=== PATIENT | male | born 1940 | race African-American/Black ===

== ENCOUNTER 2016-06-22 16:00 | Emergency (ER) | payer OTHER, MEDICAID ==
[~2016-06-22] VITALS: Ht 175.3 cm; Wt 93.4 kg
[2016-06-22 16:00] VITALS: BP_SYST 153
[~2016-06-22 16:00] MED LIST: ASPIRIN; CARVEDILOL PO; LISINOPRIL PO; LOVASTATIN PO
--- NOTE | 2016-06-22 16:00 | NUR ---
Patient brought in BLS, to bed 6 to gown
[2016-06-22 16:29] LABS: BASOPHILS % (AUTO) 0.6 % (0.0-2.0); EOSINOPHILS % (AUTO) 0.3 % (0.0-4.0); HEMOGLOBIN 12.9 g/dL (14.0-18.0); LYMPHOCYTES # (AUTO) 1.4 K/uL (1.0-5.5); LYMPHOCYTES % (AUTO) 25.4 % (20.5-51.5); MEAN CORPUSCULAR HEMOGLOBIN 31 pg (27-31); MEAN CORPUSCULAR HGB CONC 34 % (32-36); MEAN CORPUSCULAR VOLUME 90 fL (79.0-98.0); MONOCYTES # (AUTO) 0.7 K/uL (0.0-1.0); MONOCYTES % (AUTO) 13.1 % (1.7-9.3); NEUTROPHILS # (AUTO) 3.3 K/uL (1.8-7.7); NEUTROPHILS % (AUTO) 60.6 % (40.0-70.0); PLATELET COUNT (AUTO) 141 K/uL (130-430); RED CELL DISTRIBUTION WIDTH 13.8 % (9.0-15.0); WHITE BLOOD COUNT (AUTO) 5.4 K/uL (4.8-10.8)
--- NOTE | 2016-06-22 16:30 | NUR ---
PT PRESENTS WITH HISTORY OF FALLING 2 TIMES TODAY LAST TIME BEING JUST RPIOR TO ADMISSION. PTS DAUGHTER STATES THAT HE TOOK NIQUIL AT 0400 THIS AM FOR A HAD COLD AND HASNT FELT RIGHT SINCE THEN. PT PRESENTS WITH ABRASIONS TO FOREHEAD, NOSE, UPPER LIP AND INNER LIP. NO ACTIVE BLEEDING. WOUNDS CLEANED WITH NS. TONY. NO CONFUSION OR HEADACHE. WILL MONITOR.
[2016-06-22 16:33] LABS: ANION GAP 2 (5-15); CALCIUM 8.3 mg/dL (8.4-11.0); CHLORIDE 99 mmol/L (98-107); CREATININE 1.17 mg/dL (0.55-1.30); GLUCOSE 130 mg/dL (70-99); POTASSIUM 3.7 mmol/L (3.5-5.1); SODIUM SERUM 131 mmol/L (136-145); UREA NITROGEN, BLOOD 11 mg/dL (8-21)
[2016-06-22 16:38] LABS: INR 1.1 (0.80-1.20); PROTHROMBIN TIME 11.9 SECS (9.5-12.5)
--- NOTE | 2016-06-22 17:30 | NUR ---
WOUND CARE DONE TO FACIAL ABRASIONS WITH NS .
[2016-06-22] MEDS ORDERED: BACITRACIN 1 GM OINT TP ONE ×2 (18:15→18:19)
[2016-06-22 18:25] VITALS: BP_SYST 130
--- NOTE | 2016-06-22 18:25 | NUR ---
Patient given written and verbal discharge instructions and verbalizes understanding. ER MD discussed with patient the results and treatment provided. Given copies of tests performed in ER. Patient in stable condition. ID arm band removed. Rx of ZITHROMAX AND FLONASE given. Patient educated on pain management and to follow up with PMD. Pain Scale . Opportunity for questions provided and answered. EKG DONE PRIOR TO DISCHARGE AND BASCITRACIN OINTMENT APPLIED TO ABRASIONS ON FACE. PT DISCHARGED HOME WITH DAUGHTER VIA WC.
[2016-06-22] MEDS ORDERED: FLUT16SP16 NS (21:14)
[2016-06-22] MEDS ORDERED: AZIT250T PO (21:14)
[2016-06-22] MEDS ORDERED: FINA5TAB3 PO (21:14)
== END 2016-06-22 18:25 | disposition home or self-care (01) ==
LOC: SED 16:00
DX: S00.31XA Abrasion of nose, initial encounter (principal); S60.512A Abrasion of left hand, initial encounter; S60.511A Abrasion of right hand, initial encounter; J06.9 Acute upper respiratory infection, unspecified; E78.00 Pure hypercholesterolemia, unspecified; H54.0 Blindness, both eyes; I10 Essential (primary) hypertension; R51 Headache; Z95.9 Presence of cardiac and vascular implant and graft, unspecified; Z86.79 Personal history of other diseases of the circulatory system; W19.XXXA Unspecified fall, initial encounter; Y93.89 Activity, other specified; Y92.89 Other specified places as the place of occurrence of the external cause; Y99.8 Other external cause status
CPT/HCPCS: 36415; 70450-TC; 80048; 85025; 85610-TC; 85730-TC; 93005; 99285

== ENCOUNTER 2016-06-22 20:11 | Inpatient (IN) | payer OTHER, MEDICAID ==
[~2016-06-22] VITALS: Ht 180.3 cm; Wt 98.0 kg
[2016-06-22 20:11] VITALS: BP 153/78; PULSE 94; RESP 18; TEMP 97.2; O2SAT 98
--- NOTE | 2016-06-22 20:20 | NUR ---
Placed in room 03 . Placed on hospital monitor, blood pressure machine and pulse oximeter. To gown for exam. Side rails up. Report given to GARFIELD Huang.
--- NOTE | 2016-06-22 20:25 | NUR ---
Pt brought to ED by daughter for a second fall today , was seen by and discharged home, then fell and was brought back to ED by daughter, Pt joseph MEDEROS, stated he was able to get up by himself. Pt has difficulty ambulating and required assistance, gait unstable. Pt speech sluggish, slow to respond, denies dizziness, A&Ox4, denies SOB or chestpain, denies N/V/D. Abrasion at bridge of nose and forehead noted, treated with bacitracin topical. Daughter stated " my father is off, something is wrong with him, this is not normal".Will continue to monitor Addendum: 06/22/16 at 2315 by [email or web address] Daughter clarified that pt fell 1 time at home, did not come to ER. Fell second time and has abrasion on face, pt was brought to ED and was discharged. After pt went home, daughter stated she thought her dad is not acting normal, and brought him back to ED for evaluation
--- NOTE | 2016-06-22 20:30 | NUR ---
Doreen peterson in [place] - 06/22/16 at 2132 by [email or web address] Cooling measure with icepack and cool cloth used. Will continue to monitor
--- NOTE | 2016-06-22 20:30 | NUR ---
ER at bedside examining patient.
--- NOTE | 2016-06-22 20:50 | NUR ---
Medication reconciliation completed with information provided by daughter. Any prior medication reconciliation on file was reviewed and corrected.
[2016-06-22] MEDS ORDERED: FINA5TAB3 PO (21:14)
[2016-06-22] MEDS ORDERED: FLUT16SP16 NS (21:14)
[2016-06-22] MEDS ORDERED: AZIT250T PO (21:14)
--- NOTE | 2016-06-22 21:20 | NUR ---
Oral temp 102.2, aware, stated to continue monitor
--- NOTE | 2016-06-22 21:25 | NUR ---
Cold pack and cool cloth used , will continue to monitor
--- NOTE | 2016-06-22 22:10 | NUR ---
Oral temp 101.9, notified. stated to order CXR.
--- NOTE | 2016-06-22 22:18 | NUR ---
MD Carlin at bedside evaluating pt and discussing with family
--- NOTE | 2016-06-22 22:20 | NUR ---
clarified that pt is not sepsis, sepsis protocol will not be performed.
[2016-06-22] MEDS ORDERED: ONDANSETRON HCL 4 MG/2 ML VIAL IVP PRN (22:30)
--- NOTE | 2016-06-22 22:58 | NUR ---
ADMISSION: The patient, JULIANNE RODRIGUEZ, 76 y/o, M admitted by DELL LEWIS MD, was given written information regarding hospital policies, unit procedures and contact persons.
--- NOTE | 2016-06-22 22:58 | NUR ---
Patient will be admitted to care of . Admitted to med-surg unit. Will go to room 121C. Belongings list completed. Summary report printed. Report given to Vignesh MERRILL
[2016-06-22 23:00] VITALS: BP 136/71; PULSE 90
--- NOTE | 2016-06-22 23:10 | NUR ---
ADMITTED TO M/S ADMITTED PT TO FLOOR A/A/O, LEGALLY BLIND D/T GLAUCOMA. NO S/S OF PAIN AND NO SOB NOTED. V/S 136/71,99.1,90,19 96% RA. LACERATION NOTED TO NOSE BRIDGE AND UPPER LIP D/T FALL. IV NOTED TO R A/C G 20 NO INFILTRATE WITH GOOD BLOOD RETURN. WEAKNESS NOTED TO BLE. ORIENT PT TO ROOM AND USE OF CALL LIGHT. BED IN LOW POSITION WITH SIDE RAILS UPX2 FOR SAFETY. WILL CONT TO MONITOR.
[2016-06-22 23:13] VITALS: BP 136/71; PULSE 90; RESP 18; TEMP 99.1; O2SAT 95
--- NOTE | 2016-06-22 23:14 | NUR ---
Consultation Paged Reason for consultation: ALOC Was consult called: Yes Person who was notified: Kathy Consulting Physician: Vince Barajas Consulting Specialty: Neurology Senior Trial Attorney Ordered By: Dr Carlin
[2016-06-22 23:26] LABS: BARBITURATE, URINE NEGATIVE (NEG <=200); BENZODIAZEPINE, URINE NEGATIVE (NEG <=150); CANNABINOID, URINE NEGATIVE (NEG <=50); COCAINE, URINE NEGATIVE (NEG <=150); METHAMPHETAMINES SCREEN,URINE NEGATIVE (NEG <=500); OPIATE, URINE NEGATIVE (NEG <=100); PHENCYCLIDINE SCREEN,URINE NEGATIVE (NEG <=25); UR TRICYCLIC ANTIDEPRESSANTS NEGATIVE (NEG <=300); URINE AMPHETAMINE NEGATIVE (NEG <=500); URINE METHADONE NEGATIVE (NEG <=200); URINE OXYCODONE SCREEN NEGATIVE (NEG <=100); URINE PROPOXYPHENE SCREEN NEGATIVE (NEG <=300)
[2016-06-22] MEDS ORDERED: ACETAMINOPHEN 325 MG TABLET PO PRN (23:45)
[2016-06-23] MEDS ORDERED: ACETAMINOPHEN 325 MG TABLET PO ONE
--- NOTE | 2016-06-23 | NUR ---
D/C ZITHROMAX DAUGHTER OF PT SHOWED PRESCRIPTION OF ZITHROMAX THAT HIS FATHER JUST FINISHED TAKING TODAY @ HOME. PAGED AND NOTIFED DR LEWIS, DR LEWIS GAVE ORDER TO D/C THE ZITHROMAX SHE PRESCRIBED. ORDER NOTED AND CARRIED OUT.
[2016-06-23] MEDS ORDERED: cefTRIAXone 1 GM IVPB PREMIX 50 ML IV ONE (00:07)
[2016-06-23] MEDS: cefTRIAXone 1 GM IVPB PREMIX 50 ML IV SCH (00:23)
--- NOTE | 2016-06-23 01:00 | NUR ---
ROUNDS PT IS COMFORTABLY RESTING IN BED @ THIS TIME. NO S/S OF PAIN AND NO SOB NOTED. BED IN LOW POSITION WITH SIDE RAILS UP X3. CALL LIGHT WITHIN REACH, WILL CONT TO MONITOR.
--- NOTE | 2016-06-23 03:00 | NUR ---
ROUNDS PT IS COMFORTABLY RESTING IN BED @ THIS TIME. NO C/O PAIN AND NO RESPI DISTRESS NOTED. BED IN LOW POSITION WITH SIDE RAILS UP X3. CALL LIGHT WITHIN REACH, WILL CONT TO MONITOR.
[2016-06-23] MEDS: ALBUTEROL SULFATE 0.083% 2.5 MG/3 ML VIAL.NEB INH SCH ×5 (04:14→20:36)
--- NOTE | 2016-06-23 05:00 | NUR ---
AM CARE PARTIAL BED BATH AND ORAL CARE WAS PERFORMED WITH PT. NO S/S OF PAIN AND NO RESPI DISTRESS NOTED. BED IN LOW POSITION WITH CALL LIGHT WITHIN REACH; WILL CONT TO MONITOR.
[2016-06-23 06:33] LABS: BASOPHILS % (AUTO) 0.5 % (0.0-2.0); EOSINOPHILS % (AUTO) 0.1 % (0.0-4.0); LYMPHOCYTES # (AUTO) 2.1 K/uL (1.0-5.5); LYMPHOCYTES % (AUTO) 34.6 % (20.5-51.5); MEAN CORPUSCULAR HEMOGLOBIN 30 pg (27-31); MEAN CORPUSCULAR HGB CONC 33 % (32-36); MEAN CORPUSCULAR VOLUME 91 fL (79.0-98.0); MONOCYTES # (AUTO) 0.7 K/uL (0.0-1.0); MONOCYTES % (AUTO) 12.2 % (1.7-9.3); NEUTROPHILS # (AUTO) 3.3 K/uL (1.8-7.7); NEUTROPHILS % (AUTO) 52.6 % (40.0-70.0); PLATELET COUNT (AUTO) 123 K/uL (130-430); RED BLOOD CELL COUNT(AUTO) 4.28 MIL/uL (4.2-6.2); RED CELL DISTRIBUTION WIDTH 13.8 % (9.0-15.0); WHITE BLOOD COUNT (AUTO) 6.1 K/uL (4.8-10.8)
[2016-06-23 06:47] LABS: PHOSPHORUS 3.4 mg/dL (2.7-4.5)
--- NOTE | 2016-06-23 06:47 | NUR ---
FINAL NOTES PT IS COMFORTABLY RESTING @ THIS TIME. NO S/S OF PAIN. V/S ARE WNL. ALL NEEDS MET AND ANTICIPATED BY NOC NURSES. BED IN LOW POSITION WITH SIDE RAILS UPX 2 FOR SAFETY. CALL LIGHT WITHIN REACH, ENDORSED.
[2016-06-23 08:00] VITALS: BP 138/77; PULSE 88; RESP 20; TEMP 99.6; O2SAT 96
--- NOTE | 2016-06-23 08:00 | NUR ---
OPENING NOTES, SEEN PT IN BED, AAOX3, DENIES PAIN, NOTED THAT PT HAS SMALL SCAB ON BRIDGE OF NOSE AND UPPER LIP SWOLLEN. VITALS WNL, TEMP 99.7, NO SOB, NO DISTRESS. OFFRED URINAL BUT REFUSED. CALLIGHT IN REACH, BED IN LOW POSITION. INSTRUCTED TO CALL FOR ASSIST AND NOT TO GET OUT OF BED WITHOUT NURSE ON HIS SIDE TO PREVENT FALL. PT VERBALIZED UNDERSTANDING.
[2016-06-23] MEDS ORDERED: cefTRIAXone 1 GM VIAL IM SCH (09:00)
[2016-06-23] MEDS ORDERED: FLUTICASONE PROPIONATE 50 mCg/SPRAY 16 GM NS SCH (09:00)
[2016-06-23] MEDS ORDERED: AZITHROMYCIN 250 MG TABLET PO SCH (09:00)
[2016-06-23] MEDS: FLUTICASONE PROPIONATE 50 mCg/SPRAY 16 GM NS SCH (09:11)
[2016-06-23] MEDS: FINASTERIDE 5 MG TABLET (PROSCAR) PO SCH (09:12)
--- NOTE | 2016-06-23 10:00 | NUR ---
NOTES, PT IN BED, DENIES PAIN, NO SOB, NO DISTRESS, CALLIGHT IN REACH, BED IN LOW POSITION. URINAL OFFERED , ASSISTED AND TAKEN, 150 CC OF URINE, CLEAR AND YELLOW. INSTRUCTED TO STAY IN BED AND CALL FOR ASSIST TO PREVENT FALL. PT VERBALIZED UNDERSTANDING.
--- NOTE | 2016-06-23 12:00 | NUR ---
NOTES, PT SITTING IN THE CHAIR , EATING LUNCH,NO C/O PAIN, NO SOB THIS TIME, CALL LIGHT IN REACH. BED IN LOW POSITION. INSTRUCTED NOT TO STAND WITHOUT ASSIST TO PREVENT FALL. PT VERBALIZED UNDERSTANDING. CALL LIGHT IN REACH.
[2016-06-23 12:38] VITALS: BP 133/73; PULSE 87; RESP 19; TEMP 99.6; O2SAT 93
--- NOTE | 2016-06-23 14:00 | NUR ---
NOTES, PT SITTING IN THE CHAIR THIS TIME, DOES NOT WANT TO GO BACK TO BED YET. EYES CLOSE BUT VERY AROUSABLE . NO C/O PAIN, NO SOB, THIS TIME, CALL LIGHT IN REACH. BED IN LOW POSITION.
--- NOTE | 2016-06-23 14:50 | NUR ---
FAMILY AT BEDSIDE, PT'S DTR FREDDIE AT BEDSIDE, UPDATED WITH THE CURRENT ORDERS AND PT'S STATUS.
--- NOTE | 2016-06-23 16:00 | NUR ---
OTES, PT SITTING IN THE CHAIR THIS TIME, DOES NOT WANT TO GO BACK TO BED YET. CLOSE EYES BUT VERY AROUSABLE . NO C/O PAIN, NO SOB, THIS TIME, CALL LIGHT IN REACH. BED IN LOW POSITION
[2016-06-23 16:49] VITALS: BP 141/77; PULSE 104; RESP 19; TEMP 97.8; O2SAT 99
--- NOTE | 2016-06-23 18:15 | NUR ---
CLOSING NOTES, PT SITTING ON CHAIR, NO SOB, NO DISTRESS, NO UNTOWARD INCIDENT DURING THE SHIFT, NO FALLS, PT VOIDED WELL USING URINAL OFFERED EVERY 2 HOURS. CALL LIGHT ALWAYS IN REACH, AND BED IN LOW POSITION. FAMILY UPDATED WITH PT STATUS AND ORDERS. WILL ENDORSE TO NIGHT RN.
--- NOTE | 2016-06-23 20:00 | NUR ---
Initial Notes Received patient sitting up in chair, awake, alert, oriented, family at bedside. Patient denies any acute distress or pain at this time. Vital signs stable. Patient is legally blind. Breathing even and unlabored on room air. IV site patent/clean/dry. Laceration/swelling noted on patient's nose and upper lip secondary to fall at home. Assisted patient to bathroom, needs addressed. Educated patient and family on use of call light for assistance and fall precautions, all verbalized understanding. Call light in hand, will continue to monitor.
[2016-06-23 20:03] VITALS: BP 137/75; PULSE 91; RESP 18; TEMP 98.9; O2SAT 98
--- NOTE | 2016-06-23 22:45 | NUR ---
Rounds and Handoff Patient resting in bed, easily aroused. Patient denies any distress or pain at this time. Breathing even and unlabored. IV site patent/clean/dry. Needs addressed. Call light in hand, fall precautions in place. Endorsed all patient care/needs to Chelsea MERRILL.
--- NOTE | 2016-06-23 23:00 | NUR ---
Rounds Pt was received lying comfortably in bed. No c/o pain or discomfort and no acute distress noted. Pt noted with lacerations and swelling on his nose and upper lip. No bleeding noted. Fall and safety precautions are in place. Pt was instructed to call for assistance as needed and pt verbalized understanding. Call light is with pt and pt had good demonstration on the use of call light. Bed is in the lowest and locked positions. Three side rails are up and bed alarm is on. Pt's room is across from the Nurses' Station and with good visibility. NS is infusing well in RAC at TKO rate and no signs of infiltration noted at the IV site. Will continue to monitor pt.
[2016-06-24] MEDS: ALBUTEROL SULFATE 0.083% 2.5 MG/3 ML VIAL.NEB INH SCH ×5 (00:08→15:29)
[2016-06-24] MEDS: cefTRIAXone 1 GM IVPB PREMIX 50 ML IV SCH (00:27)
[2016-06-24 00:46] VITALS: BP 133/73; PULSE 94; RESP 18; TEMP 100; O2SAT 100
--- NOTE | 2016-06-24 01:30 | NUR ---
Rounds Pt is sleeping comfortably in bed and no distress noted. Fall and safety precautions are in place.
--- NOTE | 2016-06-24 04:00 | NUR ---
Rounds Pt is sleeping without any distress noted. Call light is with pt and bed alarm is on.
[2016-06-24 04:47] VITALS: BP 142/76; PULSE 82; RESP 20; TEMP 99.5; O2SAT 95
--- NOTE | 2016-06-24 06:30 | NUR ---
Closing Note Pt is sleeping comfortably in bed. All pt's needs were attended to. No fall or injury noted this shift. Will endorse to day shift nurse.
[2016-06-24 07:07] LABS: BASOPHILS % (AUTO) 0.1 % (0.0-2.0); EOSINOPHILS % (AUTO) 0.1 % (0.0-4.0); HEMOGLOBIN 12.9 g/dL (14.0-18.0); LYMPHOCYTES # (AUTO) 2.2 K/uL (1.0-5.5); LYMPHOCYTES % (AUTO) 37.1 % (20.5-51.5); MEAN CORPUSCULAR HEMOGLOBIN 31 pg (27-31); MEAN CORPUSCULAR HGB CONC 34 % (32-36); MEAN CORPUSCULAR VOLUME 90 fL (79.0-98.0); MONOCYTES # (AUTO) 0.7 K/uL (0.0-1.0); MONOCYTES % (AUTO) 12.2 % (1.7-9.3); NEUTROPHILS % (AUTO) 50.5 % (40.0-70.0); PLATELET COUNT (AUTO) 114 K/uL (130-430); RED BLOOD CELL COUNT(AUTO) 4.23 MIL/uL (4.2-6.2); RED CELL DISTRIBUTION WIDTH 14.1 % (9.0-15.0); WHITE BLOOD COUNT (AUTO) 5.9 K/uL (4.8-10.8)
[2016-06-24 07:11] LABS: ALANINE AMINOTRANSFERASE 35 U/L (12-78); ANION GAP 4 (5-15); ASPARTATE AMINOTRANSFERASE 37 U/L (10-37); CALCIUM 8.1 mg/dL (8.4-11.0); CHLORIDE 98 mmol/L (98-107); CREATININE 0.92 mg/dL (0.55-1.30); GLUCOSE 117 mg/dL (70-99); POTASSIUM 3.3 mmol/L (3.5-5.1); SODIUM SERUM 130 mmol/L (136-145); TOTAL BILIRUBIN 0.4 mg/dL (0.0-1.0); TOTAL PROTEIN, SERUM 6.9 g/dL (6.4-8.3); UREA NITROGEN, BLOOD 11 mg/dL (8-21)
--- NOTE | 2016-06-24 07:45 | NUR ---
AM ROUNDS PATIENT RESTING IN BED, AWAKE, ALERT AND ORIENTED X4, DENIES PAIN, ASSESSMENT COMPLETE, PATIENT IS LEGALLY BLIND, EDUCATED PLASTER MOLDER LIGHT SYSTEM AND TO CALL FOR ANY ASSISTANCE, PATIENT VERBALIZED UNDERSTANDING AT THIS TIME, BED IN LOWEST POSITION, THREE SIDE RAILS UP, BED ALARM ON, BED CLOSE TO NURSE'S STATION, FALL AND ASPIRATION PRECAUTIONS IN PLACE, CALL LIGHT PLACED IN THE PATIENT'S HAND.
[2016-06-24 08:00] VITALS: BP 143/74; PULSE 74; RESP 16; TEMP 98; O2SAT 95
[2016-06-24] MEDS: FINASTERIDE 5 MG TABLET (PROSCAR) PO SCH (08:53)
[2016-06-24] MEDS: FLUTICASONE PROPIONATE 50 mCg/SPRAY 16 GM NS SCH (08:54)
--- NOTE | 2016-06-24 09:00 | NUR ---
RN ROUNDS PATIENT RESTING IN BED, AWAKE, DENIES PAIN, EDUCATED ON MEDICATIONS AND POTENTIAL SIDE EFFECTS, PATIENT VERBALIZED UNDERSTANDING AND TOLERATED WELL, NO OTHER NEEDS AT THIS TIME, BED IN LOWEST POSITION, THREE SIDE RAILS UP, BED ALARM ON, BED CLOSE TO NURSES'S STATION, CALL LIGHT NEXT TO THE PATIENT'S HAND.
--- NOTE | 2016-06-24 09:42 | NUR ---
Neuro Consult follow-up Called [phone], federica Musa. I let her know Dr Parsons did not see the patient yesterday and I'm inquiring, who is rounding today. She stated that Dr. Parsons is route driver salesperson and she will re-send consult.
[2016-06-24] MEDS ORDERED: POTASSIUM CHLORIDE 20 MEQ TAB.PRT.SR PO ONE (10:15)
--- NOTE | 2016-06-24 11:00 | NUR ---
RN ROUNDS PATIENT RESTING IN BED, AWAKE, DENIES PAIN, NO OTHER NEEDS AT THIS TIME, BED IN LOWEST POSITION, THREE SIDE RAILS UP, BED ALARM ON, BED CLOSE TO NURSE'S STATION, FALL AND ASPIRATION PRECAUTIONS IN PLACE, CALL LIGHT NEXT TO THE PATIENT'S HAND.
[2016-06-24 11:28] VITALS: BP 143/74; PULSE 74; RESP 16; TEMP 98; O2SAT 95
[2016-06-24 12:00] VITALS: BP 135/75; PULSE 75; RESP 16; TEMP 98.6; O2SAT 95
--- NOTE | 2016-06-24 12:27 | NUR ---
RN ROUNDS PATIENT RESTING IN BED, EATING LUNCH, ASPIRATION PRECAUTIONS IN PLACE, EDUCATED THE PATIENT ON MEDICATION AND POTENTIAL SIDE EFFECTS, PATIENT VERBALIZED UNDERSTANDING AND TOLERATED WELL, NO OTHER NEEDS AT THIS TIME, BED IN LOWEST POSITION, THREE SIDE RAILS UP, BED ALARM ON, BED CLOSE TO NURSE'S STATION, FALL PRECAUTIONS IN PLACE, CALL LIGHT NEXT TO THE PATIENT'S HAND.
--- NOTE | 2016-06-24 14:08 | NUR ---
DR MELENDEZ ROUNDS HERE TO SEE THE PATIENT, STATED OK TO DISCHARGE.
--- NOTE | 2016-06-24 14:20 | NUR ---
RN ROUNDS PATIENT CALLING AT THIS TIME, ASKING FOR ASSISTANCE WITH URINAL, ASSISTANCE GIVEN BY STUDENT NURSE AT THIS TIME, NO OTHER NEEDS AT THIS TIME, BED IN LOWEST POSITION, THREE SIDE RAILS UP, BED ALARM ON, BED CLOSE TO NURSE'S STATION, FALL PRECAUTIONS IN PLACE, CALL LIGHT NEXT TO THE PATIENT'S HAND.
--- NOTE | 2016-06-24 16:20 | NUR ---
RN ROUNDS PATIENT RESTING IN BED, AWAKE, DENIES PAIN, NO OTHER NEEDS AT THIS TIME, BED IN LOWEST POSITION, THREE SIDE RAILS UP, BED ALARM ON, FALL AND ASPIRATION PRECAUTIONS IN PLACE, CALL LIGHT NEXT TO THE PATIENT'S HAND, BED CLOSE TO NURSE'S STATION. PATIENT DAUGHTER CALLED AND STATED SHE WILL PICK HIM UP IN THE EVENING.
[2016-06-24 16:36] VITALS: BP 115/66; RESP 18; TEMP 98.4; O2SAT 98
--- NOTE | 2016-06-24 18:57 | NUR ---
D/C Patient Patient given medication reconciliation form and D/C instructions. Exit Care provided. Patient verbalized understanding. MD discussed with patient the results and treatment provided. Ambulatory with steady gait for discharge to home. Patient in stable condition, ID band removed. IV catheter removed, intact and dressing applied, no active bleeding. PRESCRIPTIONS GIVEN BY GARFIELD XIE. Patient educated on pain management. All belongings sent with patient.
--- NOTE | 2016-06-26 11:22 | NUR ---
Discharge Follow Up Phone Call WORD PROCESSING OPERATOR phoned patient, , and spoke with patient's daughter, Tamica, with whom he lives. Tamica stated that patient was doing better but still seems more frightened than usual while walking; patient is blind and sp two falls. She has filled patient's prescriptions and is giving them as directed, discontinuing the antibiotic prescribed by the ED. Patient has a follow up appointment with his PCP, Dr Danyelle Jones, p [phone] f [phone], on 06/27/16. WORD PROCESSING OPERATOR faxed order for follow up and repeat blood chemistry, H&P, Consult and lab results. Patient has IHSS and Tamica is his caregiver.
== END 2016-06-24 19:05 | disposition home or self-care (01) | DRG 88 ==
LOC: SED 20:11 → SMU 22:23 → OBSVTOIN 06-23 10:48
DX: S06.0X0A Concussion without loss of consciousness, initial encounter (principal); G93.40 Encephalopathy, unspecified; H54.0 Blindness, both eyes; I10 Essential (primary) hypertension; E78.5 Hyperlipidemia, unspecified; R27.0 Ataxia, unspecified; N40.0 Benign prostatic hyperplasia without lower urinary tract symptoms; J06.9 Acute upper respiratory infection, unspecified; E78.00 Pure hypercholesterolemia, unspecified; W01.0XXA Fall on same level from slipping, tripping and stumbling without subsequent striking against object, initial encounter; Y93.89 Activity, other specified; Y92.89 Other specified places as the place of occurrence of the external cause; Y99.8 Other external cause status; Z79.82 Long term (current) use of aspirin; Z79.899 Other long term (current) drug therapy
CPT/HCPCS: 36415; 71020-TC; 80053; 80307; 83605; 83735-TC; 84100-TC; 85025; 87040-TC; 94640; 94760; 97116-GP; 99285; G0378; J0696; J7050